=== PATIENT | female | born 1995 | race Caucasian/White ===

== ENCOUNTER 2018-07-15 16:33 | Emergency (ER) | payer SELFPAY ==
[~2018-07-15] VITALS: Ht 160 cm; Wt 59.1 kg
[2018-07-15 16:45] VITALS: BP 125/81; PULSE 59; TEMP 98.5
[2018-07-15 18:37] LABS: HIV 1/2 Antibodies Non-Reactive; HIV-1p24 Antigen Non-Reactive
== END 2018-07-15 20:39 | disposition home or self-care (01) ==
LOC: COL.ER 16:33
PROVIDERS: Emergency Medicine
DX: T74.21XA Adult sexual abuse, confirmed, initial encounter (principal); N93.9 Abnormal uterine and vaginal bleeding, unspecified; Y92.59 Other trade areas as the place of occurrence of the external cause
CPT/HCPCS: J0696

== ENCOUNTER → 2018-07-15 | Outpatient (REF) | LOC: COL.ER 16:45 → LDRO 16:45 | DX: Z01.89 Encounter for other specified special examinations (principal); Z53.9 Procedure and treatment not carried out, unspecified reason ==

== ENCOUNTER → 2018-07-15 | Outpatient (CLI) | payer SELFPAY | LOC: LDRO 17:01 | DX: T76.21XA Adult sexual abuse, suspected, initial encounter (principal); Y92.59 Other trade areas as the place of occurrence of the external cause ==